=== PATIENT | male | born 1990 | race Caucasian/White ===

== ENCOUNTER 2023-05-25 13:50 | Emergency (ER) | payer OTHER ==
[~2023-05-25] VITALS: Ht 175.3 cm; Wt 70.0 kg
[2023-05-25 13:53] VITALS: BP 96/53; PULSE 87; RESP 16; TEMP 98.5; O2SAT 98
== END 2023-05-25 16:25 | disposition home or self-care (01) ==
LOC: ER 13:50
DX: S00.211A Abrasion of right eyelid and periocular area, initial encounter (principal); F10.129 Alcohol abuse with intoxication, unspecified; R51.9 Headache, unspecified; V98.8XXA Other specified transport accidents, initial encounter; Y93.89 Activity, other specified; Y92.89 Other specified places as the place of occurrence of the external cause; Y99.8 Other external cause status
CPT/HCPCS: 71045; 99284

== ENCOUNTER 2024-05-01 16:23 | Emergency (ER) | payer BC, OTHER ==
[~2024-05-01] VITALS: Ht 172.7 cm; Wt 100.0 kg
[2024-05-01 16:27] VITALS: O2SAT 98
[2024-05-01] MEDS: LORAZEPAM 1MG TABLET PO ONE (17:28)
[2024-05-01 17:39] LABS: HEMATOCRIT. 39.8 % (42.0-52.0); HEMOGLOBIN. 13.7 g/dL (14.0-18.0); MEAN CORPUSCULAR HEMOGLOBIN 32.7 pg (28.0-32.0); MEAN CORPUSCULAR HGB CONC 34.5 g/dL (31.0-37.0); MEAN CORPUSCULAR VOLUME 94.7 fL (80.0-94.0); MEAN PLATELET VOLUME 9.4 fl (7.4-10.4); PLATELET 209 x1000/uL (130-400); RED CELL DISTRIBUTION WIDTH 14.3 % (11.6-14.6)
[2024-05-01 17:41] LABS: CHLORIDE 103 mEq/L (98-107); POTASSIUM 3.6 mEq/L (3.5-5.1); SODIUM 137 mEq/L (136-145)
[2024-05-01 17:42] LABS: CALCIUM 9.7 mg/dL (8.7-10.4); CARBON DIOXIDE 19 mEq/L (21-32)
[2024-05-01 17:42] LABS: CLARITY URINE CLEAR (CLEAR); COLOR URINE YELLOW (YELLOW); GLUCOSE URINE NEGATIVE (NEGATIVE); KETONES URINE 4+ (NEGATIVE); LEUKOCYTE ESTERASE URINE NEGATIVE (NEGATIVE); NITRITE URINE NEGATIVE (NEGATIVE); OCCULT BLOOD URINE NEGATIVE (NEGATIVE); PROTEIN URINE NEGATIVE (NEGATIVE)
[2024-05-01 17:46] LABS: DIFFERENTIAL COMMENT 1
[2024-05-01 17:47] LABS: CREATININE 1.1 mg/dL (0.6-1.3); GLUCOSE 62 mg/dL (70-105); UREA NITROGEN BLOOD 8 mg/dL (9-23)
[2024-05-01 17:49] LABS: ACETAMINOPHEN < 2 ug/mL (10-30)
[2024-05-01 17:51] LABS: ETHANOL BLOOD < 10 mg/dL (<10)
[2024-05-01 17:51] LABS: *AMPHETAMINES SCREEN URINE PRESUMPTIVE POSITIVE (NEGATIVE); *BARBITURATES SCREEN URINE NEGATIVE (NEGATIVE); *BENZODIAZEPINES SCREEN URINE NEGATIVE (NEGATIVE); *COCAINE SCREEN URINE NEGATIVE (NEGATIVE); CANNABINOID URINE SCREEN NEGATIVE (NEGATIVE); ECSTASY MDMA SCREEN URINE CONF.TEST INDICATED (NEGATIVE); METHADONE URINE SCREEN NEGATIVE (NEGATIVE); OPIATES URINE SCREEN NEGATIVE (NEGATIVE); PHENCYCLIDINE URINE SCREEN NEGATIVE (NEGATIVE)
[2024-05-01 21:39] LABS: PLATELET ESTIMATE NORMAL
[2024-05-02 15:22] VITALS: BP 118/64; PULSE 89; RESP 18; TEMP 37.3; O2SAT 98
== END 2024-05-02 15:32 ==
LOC: ER 16:23
DX: F31.9 Bipolar disorder, unspecified (principal); Z20.822 Contact with and (suspected) exposure to COVID-19; Z79.899 Other long term (current) drug therapy
CPT/HCPCS: 36415; 80048; 80305; 80307; 80320; 80329; 81003; 82962; 85025; 87426; 99285; G0480